=== PATIENT | female | born 1945 | race Caucasian/White ===

== ENCOUNTER → 2021-01-16 | Outpatient (CLI) | payer MEDICARE ==
[~2021-01-16] MED LIST: FUROSEMIDE INJ 10 MG/ML 4 ML VIAL ONE
== END ==
LOC: NM 13:10
PROVIDERS: ATTEND Urology
DX: N26.9 Renal sclerosis, unspecified (principal)
CPT/HCPCS: 78708; A9562; J1940

== ENCOUNTER → 2021-10-11 | Outpatient (CLI) | payer MEDICARE | LOC: NM 09:54 | PROVIDERS: ATTEND Urology | DX: R80.9 Proteinuria, unspecified (principal); N39.0 Urinary tract infection, site not specified; Z87.442 Personal history of urinary calculi | CPT/HCPCS: 74018; 76770; 76857; 78708; A9562 ==